=== PATIENT | male | born 1980 | race Caucasian/White ===

== ENCOUNTER 2016-09-12 22:50 | Emergency (ER) | payer OTHER ==
--- NOTE | 2016-09-12 23:30 | ED NURSING NOTES ---
Clinical Report - Nurses [facility] [address] [place] [address] 09/12/2016 22:52 [id number] TRI[facility] Triage time 23:Sep 12 2016. Acuity: LEVEL 4. Chief Complaint: LEFT EAR PAIN. Alert. No acute distress. --23:06 Arlyn Maria R.N. 23:02 09/12/16. BP: 123/78. HR: 98. RR: 16. O2 saturation: 99%. Temp: 99.5 F. Pain level now: 02/06. --23:06 Arlyn Maria R.N. Weight: 65.7 kg stated. Height/Length: 67 inches Per Patient. BMI: 22.7. --23:06 Arlyn Maria R.N. Medications None. --23:03 Arlyn Maria R.N. Allergies No Known Drug Allergy. --23:03 Arlyn Maria R.N. History Historian: family. Arrived walking and accompanied by family. This started yesterday. He has had mild left-sided ear drainage (oily drainage). 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 (saltwater to ear, ibuprofen 400mg 8pm). PAST MEDICAL HX: Immunizations: up-to-date. SOCIAL HX: Current every day heavy tobacco smoker (cigarette)- less than 1 pack per day. Occasional alcohol use; consumes beer occasionally. Last drink was less than 24 hours ago. No drug use. No infectious disease exposure. SELF HARM ASSESSMENT: A self harm assessment was performed. The patient answered "no" to the question "Do you have thoughts of harming or killing yourself?". FALL RISK ASSESSMENT: Fall risk assessment completed. No fall risk identified. NUTRITIONAL RISK ASSESSMENT: The nutritional risk assessment revealed no deficiencies. FUNCTIONAL ASSESSMENT: Functional assessment: no impairments noted. LEARNING NEEDS ASSESSMENT: The learning needs assessment revealed no barriers. ABUSE ASSESSMENT: Abuse assessment: The patient was asked "Do you feel safe in your home?". SKIN INTEGRITY ASSESSMENT: Skin integrity risk assessment completed. No skin integrity risk identified. --23:06 Arlyn Maria R.N. PROBLEMS: Ureterolithiasis. Abdominal Pain. Crohn's Disease. Acute Pain. Sprain. Tetanus Status. --23:03 Arlyn Maria R.N. Interventions ID band on patient. --23:06 Arlyn Maria R.N. PHYSICAL ASSESSMENT GENERAL / NEURO / PSYCH: Alert. Appears in no acute distress. Pupillary exam: Right pupil 2mm and round. Left pupil: 2mm and round. HEENT: ( swelling around left ear). Pupils equal, round and reactive to light. Erythema and pain upon movement of the left auricle. Right ear within normal limits. RESPIRATORY: Respirations not labored. SKIN: Skin is warm and dry. --23:07 Arlyn Maria R.N. NURSING PROGRESS NOTES Head of bed elevated. Patient identifiers checked. Call light placed in reach. Side rails up x 1. Bed placed in lowest position. Brakes of bed on. --23:08 Arlyn Maria R.N. 23:36 09/12/2016 Motrin PO Tablets 600 mg given. Allergies verified and confirmed 5 rights. --23:36 Dony Tavares R.N. 23:37 09/12/2016 Hydrocodone-APAP (Hydrocodone-Acetaminophen) PO 5/325 mg Tablets 1 tab given. Allergies verified, confirmed 5 rights and sedative warning given to the patient and patient's trade promotion analyst. --23:37 Dony Tavares R.N. 23:37 09/12/2016 Cortisporin (Nsqyplsj-[id number]-XJ) Ear Drops Solution/Elixir 2 drop given. Given in the left ear. Allergies verified and confirmed 5 rights. --23:37 Dony Tavares R.N. DISPOSITION / DISCHARGE Departure time: 23:36. Condition at departure: improved. No learning barriers present. Discharge instructions provided and reviewed with the patient and family. Reviewed medication(s) side effects, precautions, dosing and course information. Prescription(s) given to the patient (cortisporin norco). Patient verbalized understanding. Written instructions provided in Thai. ( Sister drove the pt home and took the d/c paperwork). The patient was discharged by the physician. He was discharged home and accompanied by family. He left the Emergency Department ambulatory and via private vehicle. Family member driving. --23:38 Bill Hansen R.N. 23:38 09/12/16. BP: 125/75. HR: 95. RR: 18. O2 saturation: 99%. Temp: 98.9 F. Pain level now 6/10. --23:38 Bill Hansen R.N. Locked/Released at 09/12/2016 23:38 by Bill Hansen R.N.
--- NOTE | 2016-09-12 23:30 | ED CLINICAL REPORT ---
Clinical Report - Physicians/Mid Levels [facility] [address] [place] [address] 09/12/2016 22:52 Patient: KRZYSZTOF ACRE Time Seen: 2320. Arrived- By private vehicle. Historian- patient. HISTORY OF PRESENT ILLNESS Chief Complaint: EARACHE. This started past few days and is still present and worsening. It was gradual in onset and has been constant but is not gone now. Onset during rest. Modifying factors- (worsened by movement of the ear). Not relieved by anything. Location- left ear. The pain is described as severe. The patient has had ear pain. He has had ear drainage (clear/white and moderate). No hearing loss, nasal discharge or congestion, sinus pressure or complaint of foreign body in the ear. No ear trauma, recent barotrauma, tinnitus, sore throat or toothache. No jaw pain or facial pain. Similar symptoms previously: None. Recent medical care: Not recently seen/assessed. REVIEW OF SYSTEMS No fever or skin rash. All systems otherwise negative, except as recorded above. PAST HISTORY See nurses notes. Medications: None. Allergies: No Known Drug Allergy. SOCIAL HISTORY Smoker- current status unknown. Alcohol use. Not exposed to second-hand smoke at home. No drug use. No recent travel. Is a local resident. ADDITIONAL NOTES The nursing notes have been reviewed. PHYSICAL EXAM Vital Signs: 09/12/2016 23:02 BP: 123/78. HR: 98. RR: 16. O2 saturation: 99%. Temp: 99.5 F. Pain level now: 8/10. Blood pressure normal. Oxygen saturation normal. Appearance: Alert. No acute distress. ENT: (left external auditory canal and tympanic membranes are normal with normal appearing landmarks. No tenderness at the tragus. No tenderness with palpation of the external auricle or with movement of it. No mastoid tenderness bilaterally. The right external auditory canal appears to be edematous and erythematous. There is a mild amount of clear yellow fluid draining from the ear. Mild tenderness to palpation of thetragus. No mastoid tenderness or crepitus. No erythema noted the onset the external auditory canal. Unable to visualize the tympanic membrane secondary tofluid and edema.). Throat: No pharyngeal erythema, mouth ulcerations, tonsillar exudate or peritonsillar mass. The mucous membranes are not dry. (no trismus). Neck: Normal inspection. Neck supple. No meningeal signs. CVS: Normal heart rate and rhythm. Heart sounds normal. Respiratory: No respiratory distress. Breath sounds normal. PROGRESS AND PROCEDURES Course of Care: the patient is a pleasant 36-year-old male with past medical history significant for smoking presenting for evaluation of left-sided ear pain. The patient's examination is consistent with otitis externa. No other concerning findings for mastoiditis. Patient is nontoxic and in no acute distress. Patient is a stable outpatient candidate. Vital signs here in the emergency Department unremarkable. Risk of imaging outweighs the benefits at this time as the patient does not have any signs of systemic involvement. Patient appears to be reliable. Antibiotic eardrops provided here in the emergency department. Discussed with patient his workup, diagnosis, home care, follow-up, and return precautions. All questions have been answered. The patient expressed understanding of these instructions and was agreeable to them. Prior to departure from the emergency department, patient was reevaluated and found to be resting in bed and in no acute distress. exam continues to be reassuring for a good outpatient candidate outcome. Disposition: Discharged. Condition: good. CLINICAL IMPRESSION 09/12/2016 23:02 BP: 123/78. HR: 98. RR: 16. O2 saturation: 99%. Temp: 99.5 F. Pain level now: 8/10. Blood pressure normal. Oxygen saturation normal. Acute localized right otitis externa. INSTRUCTIONS Warnings: GENERAL WARNINGS: Return or contact your physician immediately if your condition worsens or changes unexpectedly, if not improving as expected, or if other problems arise. Specifically return if pain, vomiting, bleeding, breathing difficulty or fever. Your Current Medications: CONTINUE TAKING THE FOLLOWING MEDICATIONS: None*. Prescription Medications: [place] 5 mg / 325 mg tablets: take 1 orally every 6 hours as needed for pain. Dispense ten (10). No refill. Substitution is permissible. Cortisporin otic suspension: instill 2 drops into the affected ear for 7 days. Dispense one (1) bottle. Substitution is permissible. Follow-up: Return to the emergency department as needed. Follow up with your doctor in three days. Reason for referral: recheck today's concerns. Summary of care provided to patient via paper. Screening today revealed the patient's blood pressure to be in the normal range. The patient should follow up with a primary care provider for blood pressure management. Understanding of the discharge instructions verbalized by patient. (Electronically signed by Cornelius Gonsalves Dr. 09/15/2016 10:35)
--- NOTE | 2016-09-12 23:30 | ED ORDER SUMMARY ---
..... Patient: KRZYSZTOF ARCE OrderSheet [facility] VisitID: [id number] [place] [address] 36y, M Registration Date/Time: 09/12/2016 ORDER SHEET Weight: 65.7 kg (stated) Allergies: No Known Drug Allergy GENERAL ORDERS: MEDICATION ORDERS: Motrin PO 600 mg (NOW) (23:21 09/12/2016 Shelli Silva) (Cancelled: Duplicate Order23:36 DDavis R.N.) Motrin PO 600 mg (NOW) (23:23 09/12/2016 Shelli Silva) (23:36 DDavis R.N.) Hydrocodone-APAP PO 5/325 mg (NOW, HIGH ALERT MEDICATION) (23:23 09/12/2016 Shelli Silva) (23:37 DDavis R.N.) Cortisporin Ear Drops 2 drops (NOW, affected ear) (23:09/12/2016 Shelli Silva) (23:37 DDavis R.N.) IV FLUIDS: ORDER SHEET NOTES: [Electronically signed by Bill Hansen R.N. (23:38 09/12/2016)] [Electronically signed by Cornelius Gonsalves Dr. (10:35 09/15/2016)] [Electronically locked/signed by Bill Hansen R.N. (23:38 09/12/2016)]
--- NOTE | 2016-09-12 23:30 | ED ORDER SUMMARY ---
..... Patient: KRZYSZTOF ARCE OrderSheet [facility] VisitID: [id number] [place] [address] 36y, M Registration Date/Time: 09/12/2016 ORDER SHEET Weight: 65.7 kg (stated) Allergies: No Known Drug Allergy GENERAL ORDERS: MEDICATION ORDERS: Motrin PO 600 mg (NOW) (23:21 09/12/2016 Shelli Silva) (Cancelled: Duplicate Order23:36 DDavis R.N.) Motrin PO 600 mg (NOW) (23:23 09/12/2016 Shelli Silva) (23:36 DDavis R.N.) Hydrocodone-APAP PO 5/325 mg (NOW, HIGH ALERT MEDICATION) (23:23 09/12/2016 Shelli Silva) (23:37 DDavis R.N.) Cortisporin Ear Drops 2 drops (NOW, affected ear) (23:09/12/2016 Shelli Silva) (23:37 DDavis R.N.) IV FLUIDS: ORDER SHEET NOTES: [Electronically signed by Bill Hansen R.N. (23:38 09/12/2016)] [Electronically signed by Cornelius Gonsalves Dr. (10:35 09/15/2016)] [Electronically locked/signed by Bill Hansen R.N. (23:38 09/12/2016)]
--- NOTE | 2016-09-12 23:30 | ED NURSING NOTES ---
Clinical Report - Nurses [facility] [address] [place] [address] 09/12/2016 22:52 [id number] TRI[facility] Triage time 23:Sep 12 2016. Acuity: LEVEL 4. Chief Complaint: LEFT EAR PAIN. Alert. No acute distress. --23:06 Arlyn Maria R.N. 23:02 09/12/16. BP: 123/78. HR: 98. RR: 16. O2 saturation: 99%. Temp: 99.5 F. Pain level now: 02/06. --23:06 Arlyn Maria R.N. Weight: 65.7 kg stated. Height/Length: 67 inches Per Patient. BMI: 22.7. --23:06 Arlyn Maria R.N. Medications None. --23:03 Arlyn Maria R.N. Allergies No Known Drug Allergy. --23:03 Arlyn Maria R.N. History Historian: family. Arrived walking and accompanied by family. This started yesterday. He has had mild left-sided ear drainage (oily drainage). 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 (saltwater to ear, ibuprofen 400mg 8pm). PAST MEDICAL HX: Immunizations: up-to-date. SOCIAL HX: Current every day heavy tobacco smoker (cigarette)- less than 1 pack per day. Occasional alcohol use; consumes beer occasionally. Last drink was less than 24 hours ago. No drug use. No infectious disease exposure. SELF HARM ASSESSMENT: A self harm assessment was performed. The patient answered "no" to the question "Do you have thoughts of harming or killing yourself?". FALL RISK ASSESSMENT: Fall risk assessment completed. No fall risk identified. NUTRITIONAL RISK ASSESSMENT: The nutritional risk assessment revealed no deficiencies. FUNCTIONAL ASSESSMENT: Functional assessment: no impairments noted. LEARNING NEEDS ASSESSMENT: The learning needs assessment revealed no barriers. ABUSE ASSESSMENT: Abuse assessment: The patient was asked "Do you feel safe in your home?". SKIN INTEGRITY ASSESSMENT: Skin integrity risk assessment completed. No skin integrity risk identified. --23:06 Arlyn Maria R.N. PROBLEMS: Ureterolithiasis. Abdominal Pain. Crohn's Disease. Acute Pain. Sprain. Tetanus Status. --23:03 Arlyn Maria R.N. Interventions ID band on patient. --23:06 Arlyn Maria R.N. PHYSICAL ASSESSMENT GENERAL / NEURO / PSYCH: Alert. Appears in no acute distress. Pupillary exam: Right pupil 2mm and round. Left pupil: 2mm and round. HEENT: ( swelling around left ear). Pupils equal, round and reactive to light. Erythema and pain upon movement of the left auricle. Right ear within normal limits. RESPIRATORY: Respirations not labored. SKIN: Skin is warm and dry. --23:07 Arlyn Maria R.N. NURSING PROGRESS NOTES Head of bed elevated. Patient identifiers checked. Call light placed in reach. Side rails up x 1. Bed placed in lowest position. Brakes of bed on. --23:08 Arlyn Maria R.N. 23:36 09/12/2016 Motrin PO Tablets 600 mg given. Allergies verified and confirmed 5 rights. --23:36 Dony Tavares R.N. 23:37 09/12/2016 Hydrocodone-APAP (Hydrocodone-Acetaminophen) PO 5/325 mg Tablets 1 tab given. Allergies verified, confirmed 5 rights and sedative warning given to the patient and patient's compacting machine operator/tender. --23:37 Dony Tavares R.N. 23:37 09/12/2016 Cortisporin ([id number]-[id number]) Ear Drops Solution/Elixir 2 drop given. Given in the left ear. Allergies verified and confirmed 5 rights. --23:37 Dony Tavares R.N. DISPOSITION / DISCHARGE Departure time: 23:36. Condition at departure: improved. No learning barriers present. Discharge instructions provided and reviewed with the patient and family. Reviewed medication(s) side effects, precautions, dosing and course information. Prescription(s) given to the patient (cortisporin norco). Patient verbalized understanding. Written instructions provided in Lebanese. ( Sister drove the pt home and took the d/c paperwork). The patient was discharged by the physician. He was discharged home and accompanied by family. He left the Emergency Department ambulatory and via private vehicle. Family member driving. --23:38 Bill Hansen R.N. 23:38 09/12/16. BP: 125/75. HR: 95. RR: 18. O2 saturation: 99%. Temp: 98.9 F. Pain level now 6/10. --23:38 Bill Hansen R.N. Locked/Released at 09/12/2016 23:38 by Bill Hansen R.N.
--- NOTE | 2016-09-15 10:35 | ED MED RECONCILIATION SUMMARY ---
Patient: KRZYSZTOF ARCE Medication Reconciliation Report [facility] VisitID: [id number] [place] [address] 36y, M Registration Date/Time: 09/12/2016 Weight: 65.7 kg Height/Length: 67 in. BMI: 22.7 ALLERGIES: No Known Drug Allergy The patient's Home Medications are listed below: NONE. The source(s) of the original Home Medication information: Not obtained. The following Medications were given to the patient in the Emergency Department: Motrin [PO] PO 600 mg, administered: 09/12/2016 11:36:00 PM Hydrocodone-APAP [PO] PO 1 tab, administered: 09/12/2016 11:37:00 PM Cortisporin [Ear Drops] Ear Drops 2 drop, administered: 09/12/2016 11:37:00 PM The following Medications were prescribed to the patient: [place] 5 mg / 325 mg tablets: take 1 orally every 6 hours as needed for pain. Dispense ten (10). No refill. Substitution is permissible. -- Cornelius Gonsalves Dr. Cortisporin otic suspension: instill 2 drops into the affected ear for 7 days. Dispense one (1) bottle. Substitution is permissible. -- Cornelius Gonsalves Dr.
--- NOTE | 2016-09-15 10:35 | ED MAR SUMMARY ---
..... Medication Administration Record [facility] [address] [place] [address] Patient: KRZYSZTOF ARCE Visit ID: [id number] 36y, M Weight: 65.7 kg Height/Length: 67 in BMI: 22.7 ALLERGIES: No Known Drug Allergy Given 23:36 09/12/2016 Dony Tavares R.N. Medication Administered: MOTRIN [PO], Dose: 600 mg Tablets PO. Medication Ordered: Motrin PO 600 mg (NOW). Given 23:37 09/12/2016 Dony Tavares R.N. Medication Administered: HYDROCODONE-APAP [PO] (HYDROCODONE-ACETAMINOPHEN), Dose: 1 tab 5/325 mg Tablets PO. Medication Ordered: Hydrocodone-APAP PO 5/325 mg (NOW, HIGH ALERT MEDICATION). Given 23:37 09/12/2016 Dony Tavares R.N. Medication Administered: CORTISPORIN [EAR DROPS] ([id number]), Dose: 2 drop Solution/Elixir Ear Drops. Medication Ordered: Cortisporin Ear Drops 2 drops (NOW, affected ear).
--- NOTE | 2016-09-15 10:35 | ED DISCHARGE INSTRUCTIONS ---
Patient: KRZYSZTOF ARCE General Instructions [facility] VisitID: [id number] [place] [address] 36y, M Registration Date/Time: 09/12/2016 09/12/2016 23:02 BP: 123/78. HR: 98. RR: 16. O2 saturation: 99%. Temp: 99.5 F. Pain level now: 8/10. Blood pressure normal. Oxygen saturation normal. Acute localized right otitis externa. INSTRUCTIONS Warnings: GENERAL WARNINGS: Return or contact your physician immediately if your condition worsens or changes unexpectedly, if not improving as expected, or if other problems arise. Specifically return if pain, vomiting, bleeding, breathing difficulty or fever. Your Current Medications: CONTINUE TAKING THE FOLLOWING MEDICATIONS: None*. Prescription Medications: Anza 5 mg / 325 mg tablets: take 1 orally every 6 hours as needed for pain. Dispense ten (10). No refill. Substitution is permissible. Cortisporin otic suspension: instill 2 drops into the affected ear for 7 days. Dispense one (1) bottle. Substitution is permissible. Follow-up: Return to the emergency department as needed. Follow up with your doctor in three days. Reason for referral: recheck today's concerns. Summary of care provided to patient via paper. Screening today revealed the patient's blood pressure to be in the normal range. The patient should follow up with a primary care provider for blood pressure management. Understanding of the discharge instructions verbalized by patient. ADDITIONAL INFORMATION External Ear Infection [Adult] This is an infection in the ear canal due to an overgrowth of bacteria or fungus. This often occurs a few days after water gets trapped in the ear canal (swimming or bathing). It may also occur after cleaning too deeply in the ear canal with a cotton swab or other object. Sometimes hair care products get into the ear canal and cause this problem. There may be itching, redness, drainage, or swelling of the ear canal and temporary loss of hearing. Home Care: Do not try to clean the ear canal. That could push pus and bacteria deeper into the canal. Use the drops prescribed to reduce swelling and fight the infection. If an EAR WICK was placed in the ear canal, apply drops right onto the end of the wick. The wick will draw the medicine into the ear canal even if it is swollen closed. Do not allow water to get into your ear when bathing. No swimming during this time. A cotton ball may be loosely placed in the outer ear to absorb any drainage. You may use acetaminophen (Tylenol) or ibuprofen (Motrin, Advil) to control pain, unless another medicine was prescribed. [NOTE: If you have chronic liver or kidney disease or ever had a stomach ulcer or GI bleeding, talk with your doctor before using these medicines.] Preventing Future Infections: You can usually avoid this problem by using an eardrop that removes the water from your ear canal when you feel there is water trapped there. You can get these drops over the counter (Swim Ear, Aqua Ear and other brands). Follow Up with your doctor or this facility in one week or as instructed by our staff. Get Prompt Medical Attention if any of the following occur: Ear pain becomes worse or does not begin to improve after 3 days of treatment Redness or swelling of the outer ear occurs or gets worse Headache, painful or stiff neck, Feeling drowsy or confused Fever of 100.4F (38C) or higher, or as directed by your healthcare provider Seizure Hydrocodone Bitartrate, Acetaminophen Oral tablet What is this medicine? ACETAMINOPHEN; HYDROCODONE (a set a BRYON cele fen; perfecto droe KOE done) is a pain reliever. It is used to treat mild to moderate pain. How should I use this medicine? Take this medicine by mouth. Swallow it with a full glass of water. Follow the directions on the prescription label. If the medicine upsets your stomach, take the medicine with food or milk. Do not take more than you are told to take. Talk to your conveyor technician regarding the use of this medicine in children. This medicine is not approved for use in children. What side effects may I notice from receiving this medicine? Side effects that you should report to your doctor or health childcare aide as soon as possible: allergic reactions like skin rash, itching or hives, swelling of the face, lips, or tongue breathing problems confusion feeling faint or lightheaded, falls stomach pain yellowing of the eyes or skin Side effects that usually do not require medical attention (report to your doctor or health childcare aide if they continue or are bothersome): nausea, vomiting stomach upset What may interact with this medicine? alcohol antihistamines isoniazid medicines for depression, anxiety, or psychotic disturbances medicines for sleep muscle relaxants naltrexone narcotic medicines (opiates) for pain phenobarbital ritonavir tramadol What if I miss a dose? If you miss a dose, take it as soon as you can. If it is almost time for your next dose, take only that dose. Do not take double or extra doses. Where should I keep my medicine? Keep out of the reach of children. This medicine can be abused. Keep your medicine in a safe place to protect it from theft. Do not share this medicine with anyone. Selling or giving away this medicine is dangerous and against the law. Store at room temperature between 15 and 30 degrees C (59 and 86 degrees F). Protect from light. Keep container tightly closed. Throw away any unused medicine after the expiration date. Discard unused medicine and used packaging carefully. Pets and children can be harmed if they find used or lost packages. What should I tell my health care provider before I take this medicine? They need to know if you have any of these conditions: brain tumor Crohn's disease, inflammatory bowel disease, or ulcerative colitis drink more than 3 alcohol-containing drinks per day drug abuse or addiction head injury heart or circulation problems kidney disease or problems going to the bathroom liver disease lung disease, asthma, or breathing problems an unusual or allergic reaction to acetaminophen, hydrocodone, other opioid analgesics, other medicines, foods, dyes, or preservatives or trying to get breast-feeding What should I watch for while using this medicine? Tell your doctor or health childcare aide if your pain does not go away, if it gets worse, or if you have new or a different type of pain. You may develop tolerance to the medicine. Tolerance means that you will need a higher dose of the medicine for pain relief. Tolerance is normal and is expected if you take the medicine for a long time. Do not suddenly stop taking your medicine because you may develop a severe reaction. Your body becomes used to the medicine. This does NOT mean you are addicted. Addiction is a behavior related to getting and using a drug for a non-medical reason. If you have pain, you have a medical reason to take pain medicine. Your doctor will tell you how much medicine to take. If your doctor wants you to stop the medicine, the dose will be slowly lowered over time to avoid any side effects. You may get drowsy or dizzy when you first start taking the medicine or change doses. Do not drive, use machinery, or do anything that may be dangerous until you know how the medicine affects you. Stand or sit up slowly. There are different types of narcotic medicines (opiates) for pain. If you take more than one type at the same time, you may have more side effects. Give your health care provider a list of all medicines you use. Your doctor will tell you how much medicine to take. Do not take more medicine than directed. Call emergency for help if you have problems breathing. The medicine will cause constipation. Try to have a bowel movement at least every 2 to 3 days. If you do not have a bowel movement for 3 days, call your doctor or health childcare aide. Too much acetaminophen can be very dangerous. Do not take Tylenol (acetaminophen) or medicines that contain acetaminophen with this medicine. Many non-prescription medicines contain acetaminophen. Always read the labels carefully. You have been given the following additional information: External Ear Infection (Adult) Hydrocodone Bitartrate, Acetaminophen Oral tablet (Electronically signed by Cornelius Gonsalves Dr. 09/15/2016 10:35)
--- NOTE | 2016-09-15 10:35 | ED MED RECONCILIATION SUMMARY ---
Patient: KRZYSZTOF ARCE Medication Reconciliation Report [facility] VisitID: [id number] [place] [address] 36y, M Registration Date/Time: 09/12/2016 Weight: 65.7 kg Height/Length: 67 in. BMI: 22.7 ALLERGIES: No Known Drug Allergy The patient's Home Medications are listed below: NONE. The source(s) of the original Home Medication information: Not obtained. The following Medications were given to the patient in the Emergency Department: Motrin [PO] PO 600 mg, administered: 09/12/2016 11:36:00 PM Hydrocodone-APAP [PO] PO 1 tab, administered: 09/12/2016 11:37:00 PM Cortisporin [Ear Drops] Ear Drops 2 drop, administered: 09/12/2016 11:37:00 PM The following Medications were prescribed to the patient: [place] 5 mg / 325 mg tablets: take 1 orally every 6 hours as needed for pain. Dispense ten (10). No refill. Substitution is permissible. -- Cornelius Gonsalves Dr. Cortisporin otic suspension: instill 2 drops into the affected ear for 7 days. Dispense one (1) bottle. Substitution is permissible. -- Cornelius Gonsalves Dr.
--- NOTE | 2016-09-15 10:35 | ED MAR SUMMARY ---
..... Medication Administration Record [facility] [address] [place] [address] Patient: KRZYSZTOF ARCE Visit ID: [id number] 36y, M Weight: 65.7 kg Height/Length: 67 in BMI: 22.7 ALLERGIES: No Known Drug Allergy Given 23:36 09/12/2016 Dony Tavares R.N. Medication Administered: MOTRIN [PO], Dose: 600 mg Tablets PO. Medication Ordered: Motrin PO 600 mg (NOW). Given 23:37 09/12/2016 Dony Tavares R.N. Medication Administered: HYDROCODONE-APAP [PO] (HYDROCODONE-ACETAMINOPHEN), Dose: 1 tab 5/325 mg Tablets PO. Medication Ordered: Hydrocodone-APAP PO 5/325 mg (NOW, HIGH ALERT MEDICATION). Given 23:37 09/12/2016 Dony Tavares R.N. Medication Administered: CORTISPORIN [EAR DROPS] ([id number]), Dose: 2 drop Solution/Elixir Ear Drops. Medication Ordered: Cortisporin Ear Drops 2 drops (NOW, affected ear).
== END 2016-09-12 23:30 | disposition home or self-care (01) ==
LOC: ED SRH 22:50
DX: H60.91 Unspecified otitis externa, right ear (principal)